=== PATIENT | female | born 1990 | race African-American/Black ===

== ENCOUNTER 2023-07-21 05:17 | Day surgery (SDC) | payer OTHER ==
[~2023-07-21] VITALS: Ht 157.5 cm; Wt 52.7 kg
[~2023-07-21 05:17] MED LIST: CeFAZolin 2 GM/DEXTROSE 50 ML IV ONE; RINGERS SOLUTION,LACTATED 1,000 ML IV ONE
[2023-07-21] MEDS ORDERED: CeFAZolin 2 GM/DEXTROSE 50 ML IV ONE (05:30)
[2023-07-21] MEDS ORDERED: MICROFIBRILLAR COLLAGEN 1 GM PACKAGE TP ONE (05:47)
[2023-07-21] MEDS: RINGERS SOLUTION,LACTATED 1,000 ML IV ONE (06:04)
[2023-07-21] MEDS: CHLORHEXIDINE GLUCONATE 2% TOWELETTE [2'S/6'S] TP ONE (06:05)
[2023-07-21] MEDS ORDERED: BUPIVACAINE HCL/PF 0.25% 30 ML VIAL ONE (06:08)
[2023-07-21] MEDS ORDERED: HYDROmorphone HCL 2 MG/ML SYRINGE IVP PRN (07:30)
[2023-07-21] MEDS ORDERED: FentaNYL CITRATE PF 100 MCG/2 ML VIAL IVP PRN (07:30)
[2023-07-21] MEDS ORDERED: MEPERIDINE-PF 25 MG/ML VIAL IVP PRN (07:30)
[2023-07-21] MEDS ORDERED: ACETAMINOPHEN 1000 MG/ISO-OSM 100 ML IV ONE (07:32)
[2023-07-21] MEDS: ACETAMINOPHEN 1000 MG/ISO-OSM 100 ML IV ONE (07:37)
[2023-07-21] MEDS ORDERED: OXYGEN THERAPY IH SCH (08:00)
[2023-07-21] MEDS: BUPIVACAINE LIPOSOME/PF 1.3%-13.3MG/ML SUSP 10 ML VIAL INJ ONE (08:06)
[2023-07-21] MEDS: VANCOMYCIN HCL 1 GM/VIAL ONE (08:07)
[2023-07-21] MEDS: BUPIVACAINE HCL/PF 0.25% 30 ML VIAL ONE (08:07)
[2023-07-21] MEDS: MUPIROCIN CALCIUM 2% 22 GM OINTMENT ONE (08:08)
[2023-07-21] MEDS ORDERED: CeFAZolin SODIUM 1 GM VIAL IVP ONE (12:00)
[2023-07-21] MEDS ORDERED: FentaNYL CITRATE PF 100 MCG/2 ML VIAL IVP ONE (12:00)
[2023-07-21] MEDS ORDERED: DEXAMETHASONE SOD PHOS 4 MG/ML VIAL IVP ONE (12:00)
[2023-07-21] MEDS ORDERED: KETOROLAC TROMETHAMINE 60 MG/2 ML VIAL IM ONE (12:00)
[2023-07-21] MEDS ORDERED: LIDOCAINE/PF 2% 5 ML VIAL IM ONE (12:00)
[2023-07-21] MEDS ORDERED: ONDANSETRON HCL 4 MG/2 ML VIAL IVP ONE (12:00)
[2023-07-21] MEDS ORDERED: PROPOFOL 1% 20 ML VIAL IVP ONE (12:00)
[2023-07-21] MEDS ORDERED: MIDAZOLAM HCL 2 MG/2 ML VIAL IVP ONE (12:00)
== END 2023-07-21 09:25 | disposition home or self-care (01) ==
LOC: SURGERY 05:17
PROVIDERS: ATTEND Orthopaedic Surgery
DX: S64.11XA Injury of median nerve at wrist and hand level of right arm, initial encounter (principal); G56.01 Carpal tunnel syndrome, right upper limb; X58.XXXA Exposure to other specified factors, initial encounter; Y92.89 Other specified places as the place of occurrence of the external cause; Y93.89 Activity, other specified; Y99.8 Other external cause status
CPT/HCPCS: 64721; 84703; J3490 ×2; J2704; J0690 ×2; J1100; J3010; J1885; J2250; J2405; J3370; Q9967; J7120; J0131